=== PATIENT | male | born 1970 | race African-American/Black ===

== ENCOUNTER 2016-12-22 12:43 | Emergency (ER) | payer OTHER ==
[~2016-12-22 12:43] MED LIST: AZIT250T6 PO; DIAZ5TAB PO; HYDR-971 PO; HYDR115S2 PO; METH4TAB2 PO; PRED20TA PO; PRED50TA PO; PROAIR HFA8.5 GM IH; VENTOLIN HFA18 GM INH
[2016-12-22] MEDS ORDERED: ORPHENADRINE CITRATE 60 MG/2 ML VIAL. IM ONE (15:30)
[2016-12-22] MEDS ORDERED: PREDNISONE 10 MG TABLET PO ONE (15:30)
[2016-12-22] MEDS ORDERED: METH4TAB2 PO (15:33)
[2016-12-22] MEDS ORDERED: CYCL10TA2 PO (15:33)
--- NOTE | 2016-12-22 15:34 | PHYS DOC ---
Past Medical History Past Medical History: Asthma, Hypertension, Sciatica Additional Past Medical Histor: COLLAPSED LUNG,HYPOTHERMIA Past Surgical History: No Surgical History Alcohol Use: Heavy Drug Use: Marijuana Adult General Chief Complaint Chief Complaint: LOWER BACK PAIN OR INJURY HPI HPI Patient is a 46 year old male who presents with complaint of low back pain. Patient states his symptoms have been present for the past 3 days. Patient states symptoms have progressed worsened. Patient has history of sciatica. Patient states that he has had mild radicular pain in his right lower extremity but is not having significant pain in his leg at this time. Patient states that the pain is localized across his lower back. Patient states that it feels like tightness. Patient denies any recent injuries. Patient has taken ibuprofen with no relief in symptoms. Patient rates his pain currently as 10 out of 10. Patient denies any loss of bowel or bladder control, saddle and seizure, or foot drop. Review of Systems Review of Systems Constitutional: Denies fever or chills [] Eyes: Denies change in visual acuity, redness, or eye pain [] HENT: Denies nasal congestion or sore throat [] Respiratory: Denies cough or shortness of breath [] Cardiovascular: Denies chest pain or edema [] GI: Denies abdominal pain, nausea, vomiting, bloody stools or diarrhea [] : Denies dysuria or hematuria [] Musculoskeletal: Back pain [] Integument: Denies rash or skin lesions [] Neurologic: Denies headache, focal weakness or sensory changes [] Current Medications Current Medications Current Medications Medications (Trade) Dose Ordered Sig/[facility] Start Time Stop Time Status Last Admin Dose Admin Orphenadrine Citrate (Norflex) 60 mg 1X ONCE 12/22/16 15:30 12/22/16 15:31 DC 12/22/16 15:25 60 MG Prednisone (Prednisone) 50 mg 1X ONCE 12/22/16 15:30 12/22/16 15:31 DC 12/22/16 15:24 50 MG Allergies Allergies Allergies Coded Allergies Type Severity Reaction Last Updated Verified peanut Allergy Intermediate swelling, itching 06/11/16 Yes shellfish derived Allergy Intermediate swelling 06/11/16 Yes Uncoded Allergies Type Severity Reaction Last Updated Verified GREEN VEGETABLES Allergy Intermediate swelling 05/10/16 Physical Exam Physical Exam Constitutional: Alert, afebrile, appears in moderate discomfort. [] HENT: Normocephalic, atraumatic, bilateral external ears normal, oropharynx moist, no oral exudates, nose normal. [] Cardiovascular:Heart rate regular rhythm, no murmur [] Lungs & Thorax: Bilateral breath sounds clear to auscultation [] Abdomen: Bowel sounds normal, soft, no tenderness, no masses, no pulsatile masses. [] Back: Lower lumbar bilateral paraspinous muscle tenderness to palpation, bilateral lower lumbar muscle spasms present, no midline tenderness, no flank ecchymosis, negative straight leg test. [] Extremities: No tenderness, no cyanosis, no clubbing, ROM intact, no edema. [] Neurologic: Alert and oriented X 3, normal motor function, normal sensory function, no focal deficits noted. [] Current Patient Data Vital Signs Vital Signs Date Time Temp Pulse Resp B/P Pulse Ox O2 Delivery O2 Flow Rate FiO2 12/22/16 15:49 63 20 158/98 99 Room Air 12/22/16 14:04 98.4 98.4 EKG EKG Not performed [] Radiology/Procedures Radiology/Procedures Not performed [] Course & Med Decision Making Course & Med Decision Making Pertinent Labs and Imaging studies reviewed. (See chart for details) Patient was given Norflex and prednisone in the emergency department. Patient will be continued on Flexeril and Medrol Dosepak for treatment. Patient able to ambulate unassisted in the emergency department after treatment. Advised follow- up in 5-7 days a primary doctor and return to emergency department for any worsening symptoms. Patient voiced understanding and in agreement with treatment plan. Dragon Disclaimer Dragon Disclaimer This electronic medical record was generated, in whole or in part, using a voice recognition dictation system. Departure Departure Impression: Primary Impression: Acute exacerbation of chronic low back pain Disposition: HOME, SELF-CARE Condition: IMPROVED Referrals: TITI HARDIN MD (PCP) Patient Instructions: Back Pain, Adult Additional Instructions: Follow-up with Dr. Hardin in 5-7 days. Return to the emergency department for any worsening symptoms. Scripts Methylprednisolone (Medrol)4 Mg Tab.ds.pk1 Pkg PO UD #1 PKG Prov:MILENA ANDERSON MD 12/22/16 Cyclobenzaprine Hcl 10 Mg Tablet1 Tab PO TID PRN MUSCLE SPASMS #30 TAB Prov:MILENA ANDERSON MD 12/22/16 MILENA ANDERSON MD Dec 22, 2016 15:34
[2016-12-22 15:49] VITALS: BP 158/98
== END 2016-12-22 16:00 | disposition home or self-care (01) ==
LOC: ER 12:43
DX: G89.29 Other chronic pain (principal); M54.5 Low back pain; J45.909 Unspecified asthma, uncomplicated; I10 Essential (primary) hypertension; F10.10 Alcohol abuse, uncomplicated; F12.10 Cannabis abuse, uncomplicated; Z91.010 Allergy to peanuts; Z91.013 Allergy to seafood; Z91.018 Allergy to other foods
CPT/HCPCS: 96372; 99283; J2360; J7512

== ENCOUNTER 2017-07-16 03:00 | Emergency (ER) | payer OTHER ==
[~2017-07-16] VITALS: Ht 160 cm; Wt 70.3 kg
[~2017-07-16 03:00] MED LIST changes: +CYCL10TA2 PO
[2017-07-16 04:49] LABS: BASO # 0.1 x10^3/uL (0.0-0.2); BASO % 1 % (0-3); EOS % 12 % (0-3); HEMATOCRIT 38.3 % (39.0-53.0); LYMPH # 1.5 x10^3/uL (1.0-4.8); LYMPH % 26 % (24-48); MEAN CORPUSCULAR HEMOGLOBIN 31 pg (25-35); MEAN CORPUSCULAR HGB CONC 34 g/dL (31-37); MEAN CORPUSCULAR VOLUME 90 fL (79-100); MONO % 9 % (0-9); NEUT % 52 % (31-73); PLATELET COUNT 249 x10^3/uL (140-400); RED BLOOD COUNT 4.25 x10^6/uL (4.30-5.70); RED CELL DISTRIBUTION WIDTH 13.8 % (11.5-14.5); WHITE BLOOD COUNT 5.6 x10^3/uL (4.0-11.0)
[2017-07-16 05:04] LABS: CALCIUM 9.5 mg/dL (8.5-10.1); CREATININE 1.3 mg/dL (0.7-1.3); GFR 71.3; POTASSIUM 4.3 mmol/L (3.5-5.1)
[2017-07-16 05:09] LABS: ALBUMIN 3.5 g/dL (3.4-5.0); ALBUMIN/GLOBULIN RATIO 0.9 (1.0-1.7); TOTAL BILIRUBIN 0.3 mg/dL (0.2-1.0); TOTAL PROTEIN 7.3 g/dL (6.4-8.2)
[2017-07-16] MEDS ORDERED: CYCL5TAB PO (05:52)
[2017-07-16] MEDS ORDERED: HYDR-971 PO (05:52)
--- NOTE | 2017-07-16 05:52 | PHYS DOC ---
Past Medical History Past Medical History: Asthma, Hypertension, Sciatica Additional Past Medical Histor: COLLAPSED LUNG,HYPOTHERMIA Past Surgical History: No Surgical History Alcohol Use: Heavy Drug Use: Marijuana Adult General Chief Complaint Chief Complaint: LOWER EXT PAIN HPI HPI Patient is a 46 year old male who presents with back pain & leg pain. The patient reports history of sciatica & states he is experiencing recurrence, has right buttock pain radiating down right leg. Denies fevers, abdominal pain, extremity numbness/weakness, saddle anesthesia, bowel/bladder incontinence/ retention. He also reports several hour history of right sided facial/jaw pain without numbness/weakness or dental problem. Denies chest pain, shortness of breath. 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 PCP is Dr. Hardin. Review of Systems Review of Systems Constitutional: Denies fever or chills Eyes: Denies change in visual acuity HENT: Denies nasal congestion or sore throat Respiratory: Denies cough or shortness of breath Cardiovascular: Denies chest pain or edema GI: Denies abdominal pain, nausea, vomiting, bloody stools or diarrhea : Denies dysuria or hematuria Musculoskeletal: Reports back & leg pain Integument: Denies rash or skin lesions Neurologic: Denies headache, focal weakness or sensory changes Current Medications Current Medications Current Medications Medications (Trade) Dose Ordered Sig/[place] Start Time Stop Time Status Last Admin Dose Admin Diazepam (Valium) 5 mg 1X ONCE 07/16/17 04:30 07/16/17 04:31 DC 07/16/17 05:03 5 MG Ketorolac Tromethamine (Toradol) 30 mg 1X ONCE 07/16/17 06:00 07/16/17 06:01 DC 07/16/17 06:13 30 MG Allergies Allergies Allergies Coded Allergies Type Severity Reaction Last Updated Verified peanut Allergy Intermediate swelling, itching 06/11/16 Yes shellfish derived Allergy Intermediate swelling 06/11/16 Yes Uncoded Allergies Type Severity Reaction Last Updated Verified GREEN VEGETABLES Allergy Intermediate swelling 05/10/16 Physical Exam Physical Exam Constitutional: Well developed, well nourished, no acute distress, non-toxic appearance. HENT: Normocephalic, atraumatic, bilateral external ears normal, oropharynx moist, nose normal. Eyes: PERRLA, EOMI, conjunctiva normal, no discharge. Neck: supple, no stridor. Cardiovascular: RRR, no murmurs, no edema. Lungs & Thorax: LCTAB, no wheezing, no respiratory distress. no reproducible tenderness with palpation of anterior chest wall. Abdomen: soft, nontender, nondistended. Skin: Warm, dry, no erythema, no rash. Back: right buttock tenderness in distribution of sciatic nerve. Extremities: no calf tenderness or swelling, distal pulses palpable in lower extremities, symmetric strength/sensation to lower extremities. Neurologic: Alert and oriented X 3, CN2-12 grossly intact, symmetric strength/ sensation to upper & lower extremities, no focal deficits noted. Psychologic: Affect normal, judgement normal, mood normal. Current Patient Data Vital Signs Vital Signs Date Time Temp Pulse Resp B/P (MAP) Pulse Ox O2 Delivery O2 Flow Rate FiO2 07/16/17 06:25 54 20 98/64 (75) 100 Room Air 07/16/17 03:15 98.8 98.8 Lab Values Laboratory Tests Test 07/16/17 04:32 White Blood Count 5.6 x10^3/uL (4.0-11.0) Red Blood Count 4.25 x10^6/uL (4.30-5.70) L Hemoglobin 13.0 g/dL (13.0-17.5) Hematocrit 38.3 % (39.0-53.0) L Mean Corpuscular Volume 90 fL (79-100) Mean Corpuscular Hemoglobin 31 pg (25-35) Mean Corpuscular Hemoglobin Concent 34 g/dL (31-37) Red Cell Distribution Width 13.8 % (11.5-14.5) Platelet Count 249 x10^3/uL (140-400) Neutrophils (%) (Auto) 52 % (31-73) Lymphocytes (%) (Auto) 26 % (24-48) Monocytes (%) (Auto) 9 % (0-9) Eosinophils (%) (Auto) 12 % (0-3) H Basophils (%) (Auto) 1 % (0-3) Neutrophils # (Auto) 2.9 x10^3uL (1.8-7.7) Lymphocytes # (Auto) 1.5 x10^3/uL (1.0-4.8) Monocytes # (Auto) 0.5 x10^3/uL (0.0-1.1) Eosinophils # (Auto) 0.7 x10^3/uL (0.0-0.7) Basophils # (Auto) 0.1 x10^3/uL (0.0-0.2) Sodium Level 139 mmol/L (136-145) Potassium Level 4.3 mmol/L (3.5-5.1) Chloride Level 103 mmol/L (98-107) Carbon Dioxide Level 26 mmol/L (21-32) Anion Gap 10 (6-14) Blood Urea Nitrogen 16 mg/dL (8-26) Creatinine 1.3 mg/dL (0.7-1.3) Estimated GFR (Cockcroft-Gault) 71.3 BUN/Creatinine Ratio 12 (6-20) Glucose Level 104 mg/dL (70-99) H Calcium Level 9.5 mg/dL (8.5-10.1) Total Bilirubin 0.3 mg/dL (0.2-1.0) Aspartate Amino Transferase (AST) 62 U/L (15-37) H Alanine Aminotransferase (ALT) 78 U/L (16-63) H Alkaline Phosphatase 89 U/L (46-116) Troponin I Quantitative < 0.017 ng/mL (0.000-0.055) Total Protein 7.3 g/dL (6.4-8.2) Albumin 3.5 g/dL (3.4-5.0) Albumin/Globulin Ratio 0.9 (1.0-1.7) L Laboratory Tests 07/16/17 04:32 Laboratory Tests 07/16/17 04:32 EKG EKG interpreted by me: NSR rate 55, no acute ST/T wave changes, normal intervals, no ectopy.[] Radiology/Procedures Radiology/Procedures CXR: interpreted by me: no cardiomegaly, no infiltrate, no pneumothorax, narrow mediastinum, no acute process.[] Course & Med Decision Making Course & Med Decision Making Pertinent Labs and Imaging studies reviewed. (See chart for details) The patient presents with sciatic pain. However he also has facial/jaw pain without obvious dental source of pain. Obtained labs, EKG, CXR which showed no cause of his symptoms. No focal neuro deficit to suggest central cause of symptoms. He felt better after receiving valium & toradol for sciatica, & requested discharge home. Recommend rest, hydration, ice/heat, scheduled ibuprofen for pain, flexeril/norco given here. Follow up with PCP in 2-3 days. Come back for symptoms of cauda equina syndrome, severe chest pain or shortness of breath, any otherwise worsening condition. Discharged home in stable condition. [] Dragon Disclaimer Dragon Disclaimer This electronic medical record was generated, in whole or in part, using a voice recognition dictation system. Departure Departure Impression: Primary Impression: Sciatic leg pain Disposition: HOME, SELF-CARE Condition: STABLE Referrals: TITI HARDIN MD (PCP) Patient Instructions: Sciatica, [id number] Additional Instructions: You were seen in the emergency department today for sciatic nerve pain. Please rest, apply ice or heat, do gentle stretches. Take ibuprofen 600 mg every 8 hours. Take Flexeril as needed for muscle spasm. Take [place] for severe breakthrough pain. No drinking alcohol or driving while taking this medication. If pain remains severe, follow-up with primary care physician for ongoing pain management. Return to the emergency department for loss of control of bowels or bladder, numbness or weakness in the legs, numbness in the groin, any otherwise worsening condition. Scripts Hydrocodone/Apap 5-325 (NORCO 5-325 TABLET) 1 Each Tablet 1 TAB PO PRN Q6HRS Y for PAIN, #10 TAB 0 Refills Prov: JESS SMITH MD 07/16/17 Cyclobenzaprine Hcl (CYCLOBENZAPRINE HCL) 5 Mg Tablet 1 TAB PO TID Y for MUSCLE SPASMS, #10 TAB Prov: JESS SMITH MD 07/16/17 JESS SMITH MD Jul 16, 2017 05:52
[2017-07-16] MEDS ORDERED: KETOROLAC 30 MG/ML INJ. IV ONE (06:00)
[2017-07-16 06:25] VITALS: BP 98/64
--- NOTE | 2017-07-16 07:17 | RAD ---
EXAM: Chest 2 views. HISTORY: Chest pain. COMPARISON: 08/13/2009. FINDINGS: Frontal and lateral views of the chest are obtained. There are no confluent infiltrates. The lungs are expanded to the 11th posterior ribs. There is no pneumothorax or pleural effusion. The heart is not enlarged. IMPRESSION: 1. Hyperinflation. Correlate for air trapping. No confluent infiltrates.
--- NOTE | 2017-07-16 07:23 | EKG ---
[facility] [address] [place] [address] Test Date: 2017-07-16 Test Time: 04:49:54 Pat Name: PHIL CRAWLEY Department: Room: Gender: M Communicable Disease Specialist: : [id number] Requested By: JESS SMITH Order Number: [id number] Reading MD: Measurements Intervals [place] Rate: 55 P: 59 TX: 150 QRS: 39 QRSD: 72 T: 40 QT: 406 QTc: 390 Interpretive Statements SINUS RHYTHM RI6.01 Unconfirmed report No previous ECG available for comparison
== END 2017-07-16 06:25 | disposition home or self-care (01) ==
LOC: ER 03:00
DX: M54.31 Sciatica, right side (principal); R68.84 Jaw pain; J45.909 Unspecified asthma, uncomplicated; I10 Essential (primary) hypertension; F12.10 Cannabis abuse, uncomplicated; F10.20 Alcohol dependence, uncomplicated; Z91.010 Allergy to peanuts; Z91.013 Allergy to seafood; Z91.018 Allergy to other foods
CPT/HCPCS: 36415; 71020; 80053; 84484; 85025; 93005; 96374; 96375; 99285; J1885; J3360

== ENCOUNTER 2017-11-23 09:14 | Inpatient (IN) | payer OTHER ==
[2017-11-23 09:49] LABS: ADD MAN DIFF? NO
[2017-11-23 09:53] LABS: BASO # 0.1 x10^3/uL (0.0-0.2); BASO % 1 % (0-3); EOS # 0.6 x10^3/uL (0.0-0.7); EOS % 7 % (0-3); HEMATOCRIT 47.1 % (39.0-53.0); HEMOGLOBIN 15.5 g/dL (13.0-17.5); LYMPH # 1.7 x10^3/uL (1.0-4.8); LYMPH % 23 % (24-48); MEAN CORPUSCULAR HEMOGLOBIN 30 pg (25-35); MEAN CORPUSCULAR HGB CONC 33 g/dL (31-37); MEAN CORPUSCULAR VOLUME 91 fL (79-100); MONO # 0.4 x10^3/uL (0.0-1.1); MONO % 5 % (0-9); NEUT # 4.9 x10^3uL (1.8-7.7); NEUT % 64 % (31-73); PLATELET COUNT 319 x10^3/uL (140-400); RED BLOOD COUNT 5.18 x10^6/uL (4.30-5.70); RED CELL DISTRIBUTION WIDTH 14.4 % (11.5-14.5); WHITE BLOOD COUNT 7.7 x10^3/uL (4.0-11.0)
[2017-11-23 10:05] LABS: ANION GAP 12 (6-14); BLOOD UREA NITROGEN 15 mg/dL (8-26); CALCIUM 9.8 mg/dL (8.5-10.1); CARBON DIOXIDE 25 mmol/L (21-32); CHLORIDE 102 mmol/L (98-107); CREATININE 0.9 mg/dL (0.7-1.3); GFR 108.5; GLUCOSE 104 mg/dL (70-99); POTASSIUM 4.3 mmol/L (3.5-5.1); SODIUM 139 mmol/L (136-145)
[2017-11-23 10:11] LABS: ALBUMIN 4.1 g/dL (3.4-5.0); ALK PHOS 103 U/L (46-116); ALT (SGPT) 25 U/L (16-63); AST (SGOT) 20 U/L (15-37); DIRECT BILIRUBIN 0.1 mg/dL (0.0-0.2); LIPASE 186 U/L (73-393); MAGNESIUM 2.1 mg/dL (1.8-2.4); TOTAL BILIRUBIN 0.5 mg/dL (0.2-1.0); TOTAL PROTEIN 8.6 g/dL (6.4-8.2)
[2017-11-23 10:16] LABS: PROTHROMBIN TIME PATIENT 12.6 SEC (11.7-14.0)
[2017-11-23 10:17] LABS: TROPONINI < 0.017 ng/mL (0.000-0.055)
[2017-11-23 10:18] LABS: THYROID STIM HORMONE (TSH) 1.075 uIU/mL (0.358-3.74)
[2017-11-23 10:20] LABS: NT-PRO BNP 32 pg/mL (0-124)
[2017-11-23 10:20] LABS: CKMB MASS < 0.5 ng/mL (0.0-3.6); CREATINE KINASE 111 U/L (39-308)
[2017-11-23] MEDS: NITROGLYCERIN SUBLINGUAL 0.4 MG BOTTLE OF 25. SL ×4 (10:31→12:34)
[2017-11-23 11:23] LABS: BARBITURATES NEG (NEG); BENZODIAZEPINES NEG (NEG); CANNABINOIDS POS (NEG); COCAINE NEG (NEG); METHADONE NEG (NEG); OPIATES NEG (NEG); PHENCYCLIDINE NEG (NEG)
[2017-11-23 11:24] LABS: AMPHETAMINE/METHAMPHETAMINE NEG (NEG); ETHANOL, URINE POS (NEG)
[2017-11-23 11:35] LABS: BILIRUBIN,URINE NEGATIVE (NEG); CLARITY,URINE CLEAR; COLOR,URINE YELLOW; GLUCOSE,URINE NEGATIVE (NEG); NITRITE,URINE NEGATIVE (NEG); PROTEIN,URINE NEGATIVE (NEG-TRACE); UROBILINOGEN,URINE 0.2 mg/dL (0.2 mg/dL)
[2017-11-23 11:36] LABS: BACTERIA,URINE 0 /HPF (0-FEW); SQUAMOUS EPITHELIAL CELL,UR OCC /LPF; WBC,URINE 0 /HPF (0-4)
[2017-11-23] MEDS: ASPIRIN 325 MG TABLET PO ×2 (12:33)
[2017-11-23] MEDS ORDERED: ONDANSETRON PF 4 MG/2 ML VIAL. IV ×4 (15:00→15:30)
[2017-11-23] MEDS ORDERED: MORPHINE SULFATE 2 MG/ML DISP.SYRIN. IV ×2 (15:00)
[2017-11-23] MEDS ORDERED: chlordiazePOXIDE HCL 25 MG CAPSULE PO ×2 (15:30)
[2017-11-23] MEDS ORDERED: diphenhydrAMINE HCL 25 MG CAPSULE PO ×2 (15:30)
[2017-11-23] MEDS ORDERED: NICOTINE 21MG PATCH. TD ×2 (15:30)
[2017-11-23] MEDS ORDERED: ACETAMINOPHEN 500 MG TABLET PO ×2 (15:30)
[2017-11-23] MEDS: HYDROcodone/APAP 5/325MG 1 TAB TABLET PO ×2 (16:10)
[2017-11-23 16:19] LABS: TROPONINI < 0.017 ng/mL (0.000-0.055)
== END 2017-11-23 17:07 | disposition home or self-care (01) | DRG 313 ==
LOC: ER 09:14 → 5 NORTH 13:00
DX: R07.89 Other chest pain (principal); F12.90 Cannabis use, unspecified, uncomplicated; F17.210 Nicotine dependence, cigarettes, uncomplicated; I10 Essential (primary) hypertension; J45.909 Unspecified asthma, uncomplicated; M19.90 Unspecified osteoarthritis, unspecified site; M54.30 Sciatica, unspecified side; M77.10 Lateral epicondylitis, unspecified elbow; Z79.899 Other long term (current) drug therapy; Z82.49 Family history of ischemic heart disease and other diseases of the circulatory system; Z71.6 Tobacco abuse counseling; Z72.89 Other problems related to lifestyle; Z71.41 Alcohol abuse counseling and surveillance of alcoholic; Z88.8 Allergy status to other drugs, medicaments and biological substances; Z91.010 Allergy to peanuts; Z91.013 Allergy to seafood
CPT/HCPCS: 36415; 71045; 80048; 80076; 80307; 81001; 82553; 83690; 83735; 83880; 84443; 84484; 85025; 85610; 93005; 99285-25

== ENCOUNTER 2018-07-01 08:44 | Emergency (ER) | payer OTHER ==
[~2018-07-01] VITALS: Ht 157.5 cm; Wt 68.0 kg
[~2018-07-01 08:44] MED LIST changes: +CYCL5TAB PO
[2018-07-01 08:52] VITALS: BP 110/69
--- NOTE | 2018-07-01 09:56 | RAD ---
Right knee radiograph 07/01/2018 9:26 AM INDICATION: Medial right knee pain COMPARISON: None available. TECHNIQUE: 3 views of the right knee are provided. FINDINGS: There is no acute fracture or dislocation. Bone mineralization is within normal limits. Joint spaces are maintained. Regional soft tissues are within normal limits. There is no soft tissue gas or osseous erosion. IMPRESSION: No acute fracture or dislocation. Electronically signed by: Jocelyn Rosales MD (07/01/2018 9:52 AM) [id number]
[2018-07-01] MEDS ORDERED: NAPR-514 PO (10:35)
--- NOTE | 2018-07-01 10:35 | PHYS DOC ---
Past Medical History Past Medical History: Asthma, Hypertension, Sciatica Additional Past Medical Histor: COLLAPSED LUNG,HYPOTHERMIA Past Surgical History: No Surgical History Alcohol Use: Rarely Drug Use: Marijuana Adult General Chief Complaint Chief Complaint: LOWEREXTREMITY INJURY HPI HPI Patient is a 47 year old male who presents to the emergency room with complaints of medial right knee pain for the last week. Patient states he was carrying heat pump last week when he accidentally dropped it and struck his right knee. Patient states he has been wearing a knee brace that has been helping, and taking ibuprofen at home for the pain. However yesterday he was carrying heavy items up some steps and felt an increase in the pain again. Currently he reports that his pain as a 10 out of 10 on the pain scale and describes it as throbbing pain to the medial aspect of his knee. He is not taking any medication for relief of pain prior to arrival today. Review of Systems Review of Systems Constitutional: Denies fever or chills [] Musculoskeletal: Denies back pain, reports medial right knee pain and mild swelling for the last week Integument: Denies rash or skin lesions [] Neurologic: Denies headache, focal weakness or sensory changes [] All other systems were reviewed and found to be within normal limits, except as documented in this note. Allergies Allergies Allergies Coded Allergies Type Severity Reaction Last Updated Verified peanut Allergy Intermediate swelling, itching 11/23/17 Yes shellfish derived Allergy Intermediate swelling 11/23/17 Yes Uncoded Allergies Type Severity Reaction Last Updated Verified GREEN VEGETABLES Allergy Intermediate swelling 05/10/16 Physical Exam Physical Exam Constitutional: Well developed, well nourished, no acute distress, non-toxic appearance. [] HENT: Normocephalic, atraumatic, bilateral external ears normal, oropharynx moist, no oral exudates, nose normal. [] Skin: Warm, dry, no erythema, no rash. [] Extremities: No cyanosis, no clubbing, ROM intact, no edema; left medial knee tenderness to palpation, full range of motion of left knee noted.. [] Neurologic: Alert and oriented X 3, normal motor function, normal sensory function, no focal deficits noted. [] Psychologic: Affect normal, judgement normal, mood normal. [] Current Patient Data Vital Signs Vital Signs Date Time Temp Pulse Resp B/P (MAP) Pulse Ox O2 Delivery O2 Flow Rate FiO2 07/01/18 08:52 98.0 60 20 110/69 (83) 99 98.0 EKG EKG [] Radiology/Procedures Radiology/Procedures PROCEDURE: KNEE RIGHT 3V Right knee radiograph 07/01/2018 9:26 AM INDICATION: Medial right knee pain COMPARISON: None available. TECHNIQUE: 3 views of the right knee are provided. FINDINGS: There is no acute fracture or dislocation. Bone mineralization is within normal limits. Joint spaces are maintained. Regional soft tissues are within normal limits. There is no soft tissue gas or osseous erosion. IMPRESSION: No acute fracture or dislocation.[] Course & Med Decision Making Course & Med Decision Making Pertinent Labs and Imaging studies reviewed. (See chart for details) Right knee strain. Prescription written for naproxen. Wear knee brace. Off work for the next 2 days. Recommend ice, elevation, and rest. Follow-up with Dr. José if symptoms persist. Patient verbalized an understanding of home care, medications, follow-up, and return to ED instructions and was in agreement with the plan of care. [] Dragon Disclaimer Dragon Disclaimer This electronic medical record was generated, in whole or in part, using a voice recognition dictation system. Departure Departure Impression: Primary Impression: Strain of right knee Additional Impression: Right knee pain Disposition: 01 HOME, SELF-CARE Condition: STABLE Referrals: TITI HARDIN MD (PCP) SONAM KILPATRICK MD Patient Instructions: Knee Sprain, [id number] Additional Instructions: Fill prescription(s) and use as directed. Recommend application of ice, elevation, and rest of affected extremity. Wear the velcro knee brace that was brought with you to the ER. Follow up with Dr. Kilpatrick if symptoms worsen. Return to the ER if your symptoms worsen. Scripts Naproxen (NAPROXEN) 500 Mg Tablet 1 TAB PO BID for 10 Days, #20 TAB 0 Refills Prov: GABY LEE PIPE COVERER AND INSULATOR 07/01/18 Problem Qualifiers Primary Impression: Strain of right knee Encounter type: initial encounter Qualified Codes: S86.911A - Strain of unspecified muscle(s) and tendon(s) at lower leg level, right leg, initial encounter Additional Impression: Right knee pain Chronicity: acute Qualified Codes: M25.561 - Pain in right knee GABY LEE PIPE COVERER AND INSULATOR Jul 01, 2018 10:35
== END 2018-07-01 10:40 | disposition home or self-care (01) ==
LOC: ER 08:44
DX: S86.811A Strain of other muscle(s) and tendon(s) at lower leg level, right leg, initial encounter (principal); J45.909 Unspecified asthma, uncomplicated; I10 Essential (primary) hypertension; Z91.010 Allergy to peanuts; Z91.013 Allergy to seafood; Z91.018 Allergy to other foods; W20.8XXA Other cause of strike by thrown, projected or falling object, initial encounter; Y93.89 Activity, other specified; Y92.89 Other specified places as the place of occurrence of the external cause; Y99.8 Other external cause status
CPT/HCPCS: 73562; 99284

== ENCOUNTER 2018-10-09 21:35 | Emergency (ER) | payer OTHER ==
[~2018-10-09] VITALS: Ht 160 cm; Wt 70.3 kg
[~2018-10-09 21:35] MED LIST changes: +ALBU2.5V8 IH; +HYDR-3164 PO; -HYDR-971 PO; +NAPR-514 PO; -PROAIR HFA8.5 GM IH
[2018-10-09 21:40] VITALS: BP 166/98
[2018-10-09] MEDS ORDERED: HYDR-3164 PO (22:04)
--- NOTE | 2018-10-09 22:05 | PHYS DOC ---
Past Medical History Past Medical History: Asthma, Hypertension, Sciatica Additional Past Medical Histor: COLLAPSED LUNG,HYPOTHERMIA Past Surgical History: No Surgical History Alcohol Use: Occasionally Drug Use: Marijuana Adult General Chief Complaint Chief Complaint: DENTAL PROBLEM HPI HPI Patient is a 47 year old male who presents with went to the dentist on this past Wednesday and states he goes back on this coming . He has 2 upper teeth that are infected with an abscess. He is put on clindamycin and given 20 hydrocodone that he can take every 4-6 hours. Patient states he is out of the hydrocodone. Review of Systems Review of Systems Constitutional: Denies fever or chills [] Eyes: Denies change in visual acuity, redness, or eye pain [] HENT: Dental pain. Denies nasal congestion or sore throat [] Respiratory: Denies cough or shortness of breath [] Cardiovascular: No additional information not addressed in HPI [] GI: Denies abdominal pain, nausea, vomiting, bloody stools or diarrhea [] : Denies dysuria or hematuria [] Musculoskeletal: Denies back pain or joint pain [] Integument: Denies rash or skin lesions [] Neurologic: Denies headache, focal weakness or sensory changes [] All other systems were reviewed and found to be within normal limits, except as documented in this note. Allergies Allergies Allergies Coded Allergies Type Severity Reaction Last Updated Verified peanut Allergy Intermediate swelling, itching 11/23/17 Yes shellfish derived Allergy Intermediate swelling 11/23/17 Yes Uncoded Allergies Type Severity Reaction Last Updated Verified GREEN VEGETABLES Allergy Intermediate swelling 05/10/16 Physical Exam Physical Exam Constitutional: Well developed, well nourished, no acute distress, non-toxic appearance. [] HENT: Dental pain. Normocephalic, atraumatic, bilateral external ears normal, oropharynx moist, no oral exudates, nose normal. [] Eyes: PERRLA, EOMI, conjunctiva normal, no discharge. [] Neck: Normal range of motion, no tenderness, supple, no stridor. [] Cardiovascular:Heart rate regular rhythm, no murmur [] Lungs & Thorax: Bilateral breath sounds clear to auscultation [] Abdomen: Bowel sounds normal, soft, no tenderness, no masses, no pulsatile masses. [] Skin: Warm, dry, no erythema, no rash. [] Back: No tenderness, no CVA tenderness. [] Extremities: No tenderness, no cyanosis, no clubbing, ROM intact, no edema. [] Neurologic: Alert and oriented X 3, normal motor function, normal sensory function, no focal deficits noted. [] Psychologic: Affect normal, judgement normal, mood normal. [] Current Patient Data Vital Signs Vital Signs Date Time Temp Pulse Resp B/P (MAP) Pulse Ox O2 Delivery O2 Flow Rate FiO2 10/09/18 21:40 98.1 97 16 166/98 (120) 96 Room Air 98.1 EKG EKG [] Radiology/Procedures Radiology/Procedures [] Course & Med Decision Making Course & Med Decision Making Patient is a 47 year old male who presents with went to the dentist on this past Wednesday and states he goes back on this coming . He has 2 upper teeth that are infected with an abscess. He is put on clindamycin and given 20 hydrocodone that he can take every 4-6 hours. Patient states he is out of the hydrocodone. Patient states he just needs pain medication to get him through until he goes to the dentist on . Alert and oriented. Rates his pain 10 out of 10. Afebrile. Patient has 2 upper front teeth that her dental caries with an inflamed gum line. Patient is given a prescription for [place] just to get him through until at his next appointment. Dragon Disclaimer Dragon Disclaimer This electronic medical record was generated, in whole or in part, using a voice recognition dictation system. Departure Departure Impression: Primary Impression: Pain, dental Additional Impression: Medication refill Disposition: HOME, SELF-CARE Condition: STABLE Referrals: TITI HARDIN MD (PCP) Patient Instructions: Dental Pain Additional Instructions: Follow-up with her dentist as scheduled. Take medication as prescribed. Scripts Hydrocodone/Apap 5-325 (NORCO 5-325 TABLET) 1 Each Tablet 1 TAB PO PRN Q6HRS PRN for PAIN, #20 TAB 0 Refills Prov: EVELIO DUMONT APRN 10/09/18 Problem Qualifiers EVELIO DUMONT APRN Oct 09, 2018 22:05
== END 2018-10-09 22:10 | disposition home or self-care (01) ==
LOC: ER 21:35
DX: K08.89 Other specified disorders of teeth and supporting structures (principal); Z76.0 Encounter for issue of repeat prescription; J45.909 Unspecified asthma, uncomplicated; I10 Essential (primary) hypertension; Z91.010 Allergy to peanuts; Z91.013 Allergy to seafood
CPT/HCPCS: 99283

== ENCOUNTER 2018-11-23 09:46 | Emergency (ER) | payer OTHER ==
[~2018-11-23] VITALS: Ht 160 cm; Wt 72.6 kg
--- NOTE | 2018-11-23 10:26 | PHYS DOC ---
Past Medical History Past Medical History: Asthma, Hypertension, Sciatica Additional Past Medical Histor: COLLAPSED LUNG,HYPOTHERMIA Past Surgical History: No Surgical History Alcohol Use: Occasionally Drug Use: Marijuana Adult General Chief Complaint Chief Complaint: HIP PAIN HPI HPI Patient is a 48-year-old male who presents to the emergency room for evaluation. He states for the past 2-3 days, he has had pain in his right lower lateral back, dating around his right hip, around the medial aspect of his right groin and upper middle thigh. He has not had any incontinence, saddle anesthesia, numbness, or focal weakness. Movement and palpation of the affected areas worsen his pain. There are no alleviating factors to his symptoms. He has not had any fevers or chills. He denies any recent trauma, or injury to the area , although he states he did slip on the ice about 5 days ago, but did not injure his back or his leg. He states he has had problems with sciatica in the past. Review of Systems Review of Systems Constitutional: Denies fever or chills [] Eyes: Denies change in visual acuity, redness, or eye pain [] HENT: Denies nasal congestion or sore throat [] Respiratory: Denies cough or shortness of breath [] Cardiovascular: The patient denies any shortness of breath, chest pain, palpitations, or orthopnea [] GI: Denies abdominal pain, nausea, vomiting, bloody stools or diarrhea [] : Denies dysuria or hematuria [] Musculoskeletal: Denies neck pain or joint pain [] Integument: Denies rash or skin lesions [] Neurologic: Denies headache, focal weakness or sensory changes [] Endocrine: Denies polyuria or polydipsia [] All other systems were reviewed and found to be within normal limits, except as documented in this note. Current Medications Current Medications Current Medications Medications (Trade) Dose Ordered Sig/Peyton Start Time Stop Time Status Last Admin Dose Admin Diazepam (Valium) 5 mg 1X ONCE 11/23/18 10:30 11/23/18 10:31 DC 11/23/18 11:14 5 MG Oxycodone/ Acetaminophen (Percocet 5/325) 1 tab 1X ONCE 11/23/18 10:30 11/23/18 10:31 DC 11/23/18 11:15 1 TAB Allergies Allergies Allergies Coded Allergies Type Severity Reaction Last Updated Verified peanut Allergy Intermediate swelling, itching 11/23/17 Yes shellfish derived Allergy Intermediate swelling 11/23/17 Yes Uncoded Allergies Type Severity Reaction Last Updated Verified GREEN VEGETABLES Allergy Intermediate swelling 05/10/16 Physical Exam Physical Exam PHYSICAL EXAM: CONSTITUTIONAL: Well developed, well nourished HEAD: normocephalic, atraumatic EENT: PERRL, EOMI. Conjunctivae normal color, sclerae non-icteric; moist mucous membranes. NECK: Supple, non-tender; no meningismus. LUNGS: Lungs CTA, breathing even and unlabored. Normal air movement. HEART: Regular rate and rhythm, no murmur CHEST: No deformity; non-tender ABDOMEN: The abdomen is soft, and non-tender, no masses or bruits. EXTREM: Normal ROM; no deformity, no calf tenderness. Normal pulses palpable in all extremities. There is no pedal edema. There is tenderness to palpation diffusely in the right hip and right groin area, there are no hernias, no skin abnormalities, no warmth or erythema or crepitus noted. The tenderness primarily in the musculature of the thigh. SKIN: No rash; no diaphoresis NEURO: Alert; normal speech and cognition; CN's grossly intact; strength grossly intact without focal deficit. There is no foot drop. There is no perineal or distal anesthesia. Patellar reflexes are 2+ bilaterally. BACK: No CVA TTP. There is tenderness to palpation along the lateral aspect of the sacral area on the right. Straight leg raise is positive at about 20�. Current Patient Data Vital Signs Vital Signs Date Time Temp Pulse Resp B/P (MAP) Pulse Ox O2 Delivery O2 Flow Rate FiO2 11/23/18 11:15 18 Room Air 11/23/18 10:58 98.2 73 119/78 (92) 98 98.2 EKG EKG [] Radiology/Procedures Radiology/Procedures [PROCEDURE: HIP RIGHT 2 VIEW EXAM: Right hip, 2 views; lumbar spine, 3 views. HISTORY: Pain. COMPARISON: None. FINDINGS: Right hip: Frontal and frog-leg views of the right hip are obtained. There is no fracture, dislocation or subluxation. There is a small benign osseous excrescence along the superior acetabulum and greater trochanter. The femoral head is normal in configuration. Lumbar spine: Frontal, lateral and coned sacral views of the lumbar spine are obtained. There is mild levoscoliosis centered at the thoracolumbar junction. There is minimal grade 1 anterolisthesis of L4 and L5. There is endplate remodeling and Schmorl's node formation at multiple levels. There is facet arthropathy predominantly at the lumbosacral junction. IMPRESSION: 1. No acute osseous finding. 2. Multilevel degenerative change throughout the lumbar spine and mild thoracolumbar scoliosis. 3. Minimal right hip osteoarthritis.] Course & Med Decision Making Course & Med Decision Making Pertinent Labs and Imaging studies reviewed. (See chart for details) [12:10 PM: The patient's condition remained stable. He is feeling significantly better after medication. He is able to ambulate without significant difficulty. Discussed test results with the patient, the need for close follow-up with both orthopedic surgery and spine surgery for further evaluation, and return precautions were discussed in detail.] Dragon Disclaimer Dragon Disclaimer This electronic medical record was generated, in whole or in part, using a voice recognition dictation system. Departure Departure Impression: Primary Impression: Hip pain Additional Impression: Low back pain Disposition: 01 HOME, SELF-CARE Condition: STABLE Referrals: TITI HARDIN MD (PCP) SHAWN NARVAEZ MD, TIMOTHY J MD Patient Instructions: Back Pain, Adult, Hip Pain, Sciatica Additional Instructions: Applying a heating pad to the affected area may help improve your symptoms. The prescribed medications may cause drowsiness-use caution while taking. Scripts Diclofenac Sodium (DICLOFENAC SODIUM) 50 Mg Tablet.dr 1 TAB PO BID, #20 TAB 0 Refills Prov: NANDA ARIAS MD 11/23/18 Cyclobenzaprine Hcl (CYCLOBENZAPRINE HCL) 10 Mg Tablet 1 TAB PO TID PRN for PAIN, #30 TAB Prov: NANDA ARIAS MD 11/23/18 Problem Qualifiers NANDA ARIAS MD Nov 23, 2018 10:26
[2018-11-23] MEDS ORDERED: diazePAM 5 MG TABLET PO ONE (10:30)
[2018-11-23] MEDS ORDERED: oxyCODONE/APAP 5/325 1 TAB TABLET PO ONE (10:30)
[2018-11-23 10:58] VITALS: BP 119/78
--- NOTE | 2018-11-23 11:02 | RAD ---
EXAM: Right hip, 2 views; lumbar spine, 3 views. HISTORY: Pain. COMPARISON: None. FINDINGS: Right hip: Frontal and frog-leg views of the right hip are obtained. There is no fracture, dislocation or subluxation. There is a small benign osseous excrescence along the superior acetabulum and greater trochanter. The femoral head is normal in configuration. Lumbar spine: Frontal, lateral and coned sacral views of the lumbar spine are obtained. There is mild levoscoliosis centered at the thoracolumbar junction. There is minimal grade 1 anterolisthesis of L4 and L5. There is endplate remodeling and Schmorl's node formation at multiple levels. There is facet arthropathy predominantly at the lumbosacral junction. IMPRESSION: 1. No acute osseous finding. 2. Multilevel degenerative change throughout the lumbar spine and mild thoracolumbar scoliosis. 3. Minimal right hip osteoarthritis. Electronically signed by: Swapna Hendrickson MD (11/23/2018 10:57 AM) [facility]
[2018-11-23] MEDS ORDERED: CYCL10TA2 PO (12:15)
[2018-11-23] MEDS ORDERED: DICL50TA4 PO (12:15)
== END 2018-11-23 12:21 | disposition home or self-care (01) ==
LOC: ER 09:46
DX: M54.5 Low back pain (principal); M25.551 Pain in right hip; J45.909 Unspecified asthma, uncomplicated; I10 Essential (primary) hypertension; Z91.010 Allergy to peanuts; Z91.013 Allergy to seafood; Z91.018 Allergy to other foods
CPT/HCPCS: 72100; 73502; 99284

== ENCOUNTER 2019-09-16 08:33 | Emergency (ER) | payer SELFPAY ==
[~2019-09-16] VITALS: Ht 160 cm; Wt 68.0 kg
[~2019-09-16 08:33] MED LIST changes: +DICL50TA4 PO
[2019-09-16] MEDS ORDERED: KETOROLAC TROMETHAMINE 10 MG TABLET PO STA (09:26)
[2019-09-16] MEDS ORDERED: fentaNYL PF VIAL 100 MCG/2 ML VIAL IM STA (09:26)
[2019-09-16] MEDS ORDERED: ORPHENADRINE CITRATE 60 MG/2 ML VIAL. IM STA (09:26)
--- NOTE | 2019-09-16 09:38 | PHYS DOC ---
Past Medical History Past Medical History: Asthma, Hypertension, Sciatica Additional Past Medical Histor: COLLAPSED LUNG,CHRONIC PAIN, ALCOHOLISM, sciatica Past Surgical History: No Surgical History, Other Additional Past Surgical Histo: wisdom teeth extraction Alcohol Use: Occasionally Drug Use: Marijuana Adult General Chief Complaint Chief Complaint: PAIN CONTROL HPI HPI Patient is a 48 year old male who presents with right-sided hip pain that radiates down his right leg. The patient also has been having left knee pain. The patient states that both of these started yesterday however he has been dealing with sciatic nerve pain on the right side for 7 years. The patient rates his pain as 10 out of 10 in severity and sharp. Has not taken any medicine prior to arrival. Patient states he is out of his a meloxicam at home. Review of Systems Review of Systems Constitutional: Denies fever or chills [] Eyes: Denies change in visual acuity, redness, or eye pain [] HENT: Denies nasal congestion or sore throat [] Respiratory: Denies cough or shortness of breath [] Cardiovascular: No additional information not addressed in HPI [] GI: Denies abdominal pain, nausea, vomiting, bloody stools or diarrhea [] : Denies dysuria or hematuria [] Musculoskeletal: Reports L knee pain and pain radiating down R leg. Integument: Denies rash or skin lesions [] Neurologic: Denies headache, focal weakness or sensory changes [] Endocrine: Denies polyuria or polydipsia [] Complete systems were reviewed and found to be within normal limits, except as documented in this note. Current Medications Current Medications Current Medications Medications (Trade) Dose Ordered Sig/Peyton Start Time Stop Time Status Last Admin Dose Admin Fentanyl Citrate (Fentanyl 2ml Vial) 100 mcg 1X STAT 09/16/19 09:26 09/16/19 09:31 DC 09/16/19 09:47 100 MCG Ketorolac Tromethamine (Toradol) 10 mg 1X STAT 09/16/19 09:26 09/16/19 09:31 DC 09/16/19 09:44 10 MG Orphenadrine Citrate (Norflex) 60 mg 1X STAT 09/16/19 09:26 09/16/19 09:31 DC 09/16/19 09:47 60 MG Allergies Allergies Allergies Coded Allergies Type Severity Reaction Last Updated Verified peanut Allergy Intermediate swelling, itching 11/23/17 Yes shellfish derived Allergy Intermediate swelling 11/23/17 Yes Uncoded Allergies Type Severity Reaction Last Updated Verified GREEN VEGETABLES Allergy Intermediate swelling 05/10/16 Physical Exam Physical Exam Constitutional: Well developed, well nourished, no acute distress, non-toxic appearance. [] HENT: Normocephalic, atraumatic, bilateral external ears normal, oropharynx moist, no oral exudates, nose normal. [] Eyes: PERRLA, EOMI, conjunctiva normal, no discharge. [] Neck: Normal range of motion, no tenderness, supple, no stridor. [] Cardiovascular:Heart rate regular rhythm, no murmur [] Lungs & Thorax: Bilateral breath sounds clear to auscultation [] Abdomen: Bowel sounds normal, soft, no tenderness, no masses, no pulsatile masses. [] Skin: Warm, dry, no erythema, no rash. [] Back: has right lower back tenderness. Extremities: L posterior knee tenderness to palpation, ROM intact, no edema. Neurologic: Alert and oriented X 3, normal motor function, normal sensory f unction, no focal deficits noted. [] Psychologic: Affect normal, judgement normal, mood normal. [] Current Patient Data Vital Signs Vital Signs Date Time Temp Pulse Resp B/P (MAP) Pulse Ox O2 Delivery O2 Flow Rate FiO2 09/16/19 09:47 22 09/16/19 08:47 98.4 69 119/88 (98) 95 Room Air 98.4 EKG EKG [] Radiology/Procedures Radiology/Procedures [facility] [address] [place], [place] [id number] IMAGING REPORT Signed PATIENT: PHIL CRAWLEY ACCOUNT: [id number] : 1970 LOCATION: ER AGE: 48 SEX: M EXAM STATUS: REG ER ORD. PHYSICIAN: JUNITO QUINTANA APRN REASON: posterior knee tenderness/ tech notified PROCEDURE: VENOUS LOWER EXTREMITY LEFT Left lower extremity venous Doppler ultrasound History: Posterior knee tenderness. Comparison: None. Procedure: Color flow Doppler, Doppler spectral analysis, and 2D images are obtained with and without compression in the area of the common femoral vein, superficial femoral vein - femoral vein junction, main femoral vein (superficial femoral vein) and popliteal vein. Veins of the proximal calf are also imaged. Findings: There is normal color flow, augmentation, and compressibility of all visualized vein segments. No evidence of deep venous thrombus is present. IMPRESSION: No evidence of left lower extremity deep venous thrombosis. Electronically signed by: Zach Montano MD (09/16/2019 11:32 AM) [facility] DICTATED and SIGNED BY: ZACH MONTANO MD DATE: 09/16/19 1132 [][facility] [address] [place] [address] IMAGING REPORT Signed PATIENT: PHIL CRAWLEY ACCOUNT: [id number] : 1970 LOCATION: ER AGE: 48 SEX: M EXAM STATUS: REG ER ORD. PHYSICIAN: JUNITO QUINTANA APRN REASON: tenderness to L knee since last night PROCEDURE: KNEE LEFT 3V KNEE LEFT 3V DATE: 09/16/2019 9:26 AM INDICATION: Knee tenderness COMPARISON: None. FINDINGS: Bones: There is no evidence of acute fracture or dislocation. Joints: Mild medial compartment joint space narrowing. There is no joint effusion. Miscellaneous: None. IMPRESSION: No evidence of acute fracture. Electronically signed by: Espinoza Vick MD (09/16/2019 10:28 AM) [facility] DICTATED and SIGNED BY: ESPINOZA VICK MD DATE: 09/16/19 1028 Course & Med Decision Making Course & Med Decision Making Pertinent Labs and Imaging studies reviewed. (See chart for details) Will get knee x-ray and ultrasound. Will give supportive care. X-ray is unremarkable and Ultrasound is unremarkable. Will d/c home to follow up with primary care doctor. Dragon Disclaimer Dragon Disclaimer This electronic medical record was generated, in whole or in part, using a voice recognition dictation system. Departure Departure Impression: Primary Impression: Knee pain, left Additional Impression: Sciatica of right side Disposition: HOME, SELF-CARE Condition: STABLE Referrals: NO PCP (PCP) Patient Instructions: Sciatica Additional Instructions: Thank you for visiting [facility]. We appreciate you trusting us with your care. If any additional problems come up don't hesitate to return to visit us. Please follow up with your primary care provider so they can plan additional care if needed and know about the problem that you had. If symptoms worsen come back to the Emergency Department. Any concerning symptoms that start such as chest pain, shortness of air, weakness or numbness on one side of the body, running high fevers or any other concerning symptoms return to the ER. Please fill your medications at any pharmacy and follow the prescription instructions. Scripts Orphenadrine Citrate (ORPHENADRINE CITRATE) 100 Mg Tablet.er 100 MG PO BID PRN for MUSCLE PAIN, #20 TAB.SR Prov: JUNITO QUINTANA APRN 09/16/19 Problem Qualifiers Primary Impression: Knee pain, left Chronicity: acute Qualified Codes: M25.562 - Pain in left knee JUNITO QUINTANA APRN Sep 16, 2019 09:38
--- NOTE | 2019-09-16 10:31 | RAD ---
KNEE LEFT 3V DATE: 09/16/2019 9:26 AM INDICATION: Knee tenderness COMPARISON: None. FINDINGS: Bones: There is no evidence of acute fracture or dislocation. Joints: Mild medial compartment joint space narrowing. There is no joint effusion. Miscellaneous: None. IMPRESSION: No evidence of acute fracture. Electronically signed by: Marco Vick MD (09/16/2019 10:28 AM) [facility]
[2019-09-16 11:30] VITALS: BP 109/80
--- NOTE | 2019-09-16 11:35 | RAD ---
Left lower extremity venous Doppler ultrasound History: Posterior knee tenderness. Comparison: None. Procedure: Color flow Doppler, Doppler spectral analysis, and 2D images are obtained with and without compression in the area of the common femoral vein, superficial femoral vein - femoral vein junction, main femoral vein (superficial femoral vein) and popliteal vein. Veins of the proximal calf are also imaged. Findings: There is normal color flow, augmentation, and compressibility of all visualized vein segments. No evidence of deep venous thrombus is present. IMPRESSION: No evidence of left lower extremity deep venous thrombosis. Electronically signed by: Zach Montano MD (09/16/2019 11:32 AM) [facility]
[2019-09-16] MEDS ORDERED: ORPH100T PO (11:47)
== END 2019-09-16 11:54 | disposition home or self-care (01) ==
LOC: ER 08:33
DX: M54.41 Lumbago with sciatica, right side (principal); M25.562 Pain in left knee; M79.604 Pain in right leg; J45.909 Unspecified asthma, uncomplicated; I10 Essential (primary) hypertension; F10.20 Alcohol dependence, uncomplicated; Z91.010 Allergy to peanuts; Z91.013 Allergy to seafood; Y90.9 Presence of alcohol in blood, level not specified
CPT/HCPCS: 73562; 93971; 96372; 99284; J2360; J3010

== ENCOUNTER → 2019-10-26 | Outpatient (CLI) | payer OTHER ==
[~2019-10-26] MED LIST changes: +ORPH100T PO
--- NOTE | 2019-10-26 10:42 | RAD ---
Examination: FOOT RIGHT 3V History: Pain Comparison/Correlation: None Findings: Total of 3 images of the right foot were obtained. Degenerative narrowing of interphalangeal joints is identified. Vascular calcifications are present involving the ankle region and are advanced for age. No displaced fracture or bone destruction. Tarsal-metatarsal joint space narrowing is also present. Impression: Degenerative joint space narrowing is moderately advanced for age. Vascular calcifications are moderately advanced for age. Electronically signed by: Sawyer Kimble MD (10/26/2019 10:39 AM) [facility]
== END | disposition home or self-care (01) ==
LOC: RAD 10:12
PROVIDERS: ATTEND Family Medicine
DX: M19.071 Primary osteoarthritis, right ankle and foot (principal)
CPT/HCPCS: 73630

== ENCOUNTER 2019-11-26 07:40 | Emergency (ER) | payer OTHER ==
[~2019-11-26] VITALS: Ht 158.8 cm; Wt 73.0 kg
[2019-11-26 08:00] VITALS: BP 120/85
[2019-11-26] MEDS ORDERED: HYDROcodone/APAP 10/325 1 TAB TABLET PO ONE (08:30)
[2019-11-26] MEDS ORDERED: IBUPROFEN 400 MG TABLET. PO ONE (08:30)
[2019-11-26] MEDS ORDERED: predniSONE 20 MG TABLET PO ONE (08:30)
--- NOTE | 2019-11-26 08:54 | RAD ---
Study: 1. XR LUMBAR SPINE 2-3V 2. XR HIP LEFT 2V WITH PELVIS Indication: Left hip pain. Lower back pain radiating to the left side. Comparison: 11/23/2018 Findings: Lumbar spine: Unchanged extent of mild levocurvature with the apex at the thoracolumbar junction. Straightening of lumbar lordosis. No interval change in vertebral body height or alignment. Mild disc space narrowing at L4-L5. Scattered Schmorl's nodes. Scattered levels with facet degeneration. Pelvis/left hip: No acute fracture. Alignment is maintained. No advanced hip arthrosis. Unremarkable sacroiliac joints and pubic symphysis. Scattered enthesophyte formation. Impression: 1. Unchanged lumbar spine alignment. No significant progression of degenerative changes relative to the 2019 comparison. 2. No acute fracture or malalignment seen throughout the pelvis or hips. No advanced arthrosis of the hips. Electronically signed by: SOCORRO RAMIREZ MD (11/26/2019 8:51 AM) [id number]
[2019-11-26] MEDS ORDERED: TRAM50TA PO (09:05)
[2019-11-26] MEDS ORDERED: PRED20TA PO (09:05)
[2019-11-26] MEDS ORDERED: NAPR-682 PO (09:05)
--- NOTE | 2019-11-26 09:05 | PHYS DOC ---
Past Medical History Past Medical History: Asthma, Hypertension, Sciatica Additional Past Medical Histor: COLLAPSED LUNG,CHRONIC PAIN, ALCOHOLISM, sciatica Past Surgical History: Other Additional Past Surgical Histo: wisdom teeth extraction Smoking Status: Current Some Day Smoker Alcohol Use: Occasionally Drug Use: Marijuana Social History Narrative: no marijuana use x "one year." Adult General Chief Complaint Chief Complaint: HIP PAIN HPI HPI Patient is a 49 year old presented to ER today for evaluation of low back pain, left hip pain that radiated to his left knee area. Patient said symptoms started couple days ago, denies any injury. Patient has history of chronic BACK problem, has history of sciatica. Patient said he however HAD PAIN on the right side BEFORE. Patient denies any trouble breathing, no chest pain, no fever, no abdominal pain. Patient denies any recent travel or operation. Patient denied leg swelling. He denies any bowel or bladder incontinence. Patient denies any fever. Review of Systems Review of Systems aLL OTHER ros IS NEGATIVE UNLESS OTHERWISE NOTED IN hpi Current Medications Current Medications Current Medications Medications (Trade) Dose Ordered Sig/Peyton Start Time Stop Time Status Last Admin Dose Admin Acetaminophen/ Hydrocodone Bitart (Lortab 10/325) 1 tab 1X ONCE 11/26/19 08:30 11/26/19 08:31 DC 11/26/19 08:40 1 TAB Ibuprofen (Motrin) 800 mg 1X ONCE 11/26/19 08:30 11/26/19 08:31 DC 11/26/19 08:39 800 MG Prednisone (Prednisone) 60 mg 1X ONCE 11/26/19 08:30 11/26/19 08:31 DC 11/26/19 08:39 60 MG Allergies Allergies Allergies Coded Allergies Type Severity Reaction Last Updated Verified peanut Allergy Intermediate swelling, itching 11/23/17 Yes shellfish derived Allergy Intermediate swelling 11/23/17 Yes Uncoded Allergies Type Severity Reaction Last Updated Verified GREEN VEGETABLES Allergy Intermediate swelling 05/10/16 Physical Exam Physical Exam See above Constitutional: Well developed, well nourished, no acute distress, non-toxic appearance. [] HENT: Normocephalic, atraumatic, bilateral external ears normal, oropharynx moist, no oral exudates, nose normal. [] Eyes: PERRLA, EOMI, conjunctiva normal, no discharge. [] Neck: Normal range of motion, no tenderness, supple, no stridor. [] Cardiovascular:Heart rate regular rhythm, no murmur [] Lungs & Thorax: Bilateral breath sounds clear to auscultation [] Abdomen: Bowel sounds normal, soft, no tenderness, no masses, no pulsatile masses. [] Skin: Warm, dry, no erythema, no rash. [] Back: No tenderness, no CVA tenderness. [] Extremities: No tenderness, no cyanosis, no clubbing, ROM intact, no edema. [] Neurologic: Alert and oriented X 3, normal motor function, normal sensory function, no focal deficits noted. [] Psychologic: Affect normal, judgement normal, mood normal. [] Current Patient Data Vital Signs Vital Signs Date Time Temp Pulse Resp B/P (MAP) Pulse Ox O2 Delivery O2 Flow Rate FiO2 11/26/19 08:40 18 98 Room Air 11/26/19 08:00 97.9 77 120/85 (97) 97.9 EKG EKG [] Radiology/Procedures Radiology/Procedures [][facility] [address] [place], [place] [id number] IMAGING REPORT Signed PATIENT: PHIL CRAWLEY ACCOUNT: [id number] : 1970 LOCATION: ER AGE: 49 SEX: M EXAM STATUS: REG ER ORD. PHYSICIAN: MALLIKA BUSTILLOS DO REASON: left hip pain PROCEDURE: HIP LEFT 2V WITH PELVIS Study: 1. XR LUMBAR SPINE 2-3V 2. XR HIP LEFT 2V WITH PELVIS Indication: Left hip pain. Lower back pain radiating to the left side. Comparison: 11/23/2018 Findings: Lumbar spine: Unchanged extent of mild levocurvature with the apex at the thoracolumbar junction. Straightening of lumbar lordosis. No interval change in vertebral body height or alignment. Mild disc space narrowing at L4-L5. Scattered Schmorl's nodes. Scattered levels with facet degeneration. Pelvis/left hip: No acute fracture. Alignment is maintained. No advanced hip arthrosis. Unremarkable sacroiliac joints and pubic symphysis. Scattered enthesophyte formation. Impression: 1. Unchanged lumbar spine alignment. No significant progression of degenerative changes relative to the 2019 comparison. 2. No acute fracture or malalignment seen throughout the pelvis or hips. No advanced arthrosis of the hips. Electronically signed by: SOCORRO RAMIREZ MD (11/26/2019 8:51 AM) [id number] DICTATED and SIGNED BY: SOCORRO RAMIREZ MD DATE: 11/26/19 0851 Course & Med Decision Making Course & Med Decision Making Pertinent Labs and Imaging studies reviewed. (See chart for details) [] Dragon Disclaimer Dragon Disclaimer This electronic medical record was generated, in whole or in part, using a voice recognition dictation system. Departure Departure Impression: Primary Impression: Acute left-sided back pain with sciatica Disposition: HOME, SELF-CARE Condition: STABLE Referrals: NAZARIO DOTY MD (PCP) follow up with your doctor next week for reevaluation, may need MRI of your lumbar spine. Patient Instructions: Sciatica Scripts Tramadol Hcl (TRAMADOL HCL) 50 Mg Tablet 50 MG PO Q6HRS PRN for PAIN for 5 Days, #20 TAB Prov: MALLIKA BUSTILLOS DO 11/26/19 Naproxen Sodium (ANAPROX DS) 550 Mg Tablet 1 TAB PO PRN BID PRN for PAIN for 15 Days, #30 TAB 0 Refills Prov: MALLIKA BUSTILLOS DO 11/26/19 Prednisone (PREDNISONE) 20 Mg Tablet 1 TAB PO DAILY for 7 Days, #7 TAB Prov: MALLIKA BUSTILLOS DO 11/26/19 MALLIKA BUSTILLOS DO Nov 26, 2019 09:05
== END 2019-11-26 09:16 | disposition home or self-care (01) ==
LOC: ER 07:40
DX: M54.42 Lumbago with sciatica, left side (principal); M25.552 Pain in left hip; J45.909 Unspecified asthma, uncomplicated; I10 Essential (primary) hypertension; G89.29 Other chronic pain; F12.90 Cannabis use, unspecified, uncomplicated; F17.200 Nicotine dependence, unspecified, uncomplicated; Z98.890 Other specified postprocedural states; Z91.010 Allergy to peanuts; Z91.013 Allergy to seafood; Z91.018 Allergy to other foods
CPT/HCPCS: 72100; 73502; 99284; J7512